=== PATIENT | female | born 1965 | race Caucasian/White ===

== ENCOUNTER 2017-12-12 12:12 | Emergency (ER) | payer OTHER ==
[~2017-12-12] VITALS: Ht 157.5 cm; Wt 46.7 kg
[~2017-12-12 12:12] MED LIST: ALBUTEROL0.09 MG/A1 INH; HYDROXYZINE HCL50 M1 PO; MEDROL 2 MG TABL2 MG PO; PREDNISONE10 M2 PO; TESSALON PERLE100 MG PO; ZITHROMAX Z-PA250 M1 PO
--- NOTE | 2017-12-12 13:08 | RADIOLOGY REPORT ---
EXAMINATION: XR CHEST CLINICAL INFORMATION: Shortness of breath and pulmonary congestion; question pneumonia. COMPARISON: Prior chest radiographs dated 11/24/2015. TECHNIQUE: Frontal and lateral views of the chest were obtained. FINDINGS: The heart, great vessels, pulmonary vasculature and mediastinum are normal. There is a full inspiratory effort. The lungs show no focal infiltrate, effusion or pneumothorax. There is no acute osseous abnormality. There are old, healed right third and ninth rib fractures. There has been a left shoulder arthroplasty. IMPRESSION: No active cardiopulmonary disease.
--- NOTE | 2017-12-12 14:54 | ED INFLUENZA/URI COMPLAINT ---
History of Present Illness General Chief Complaint: Upper Respiratory Sx/Fever Stated Complaint: CHEST CONGESTION, ?FLU, FEVER Source: patient Exam Limitations: no limitations Vital Signs & Intake/Output Vital Signs & Intake/Output Vital Signs Date Time Temp Pulse Resp B/P B/P Pulse O2 O2 Flow FiO2 Mean Ox Delivery Rate 12/12 1606 95 16 129/67 96 Room Air 12/12 1500 98 12/12 1231 99.9 98 18 139/87 99 Room Air Room Air Allergies Coded Allergies: No Known Allergies (11/24/15) Reconcile Medications Albuterol Sulfate (Proair Hfa) 90 MCG HFA.AER.AD 2 PUF INH Q4-6 PRN PRN COUGH/ WHEEZING Doxycycline Hyclate 100 MG TABLET 1 TAB PO BID BRONCHITIS Ibuprofen 800 MG TABLET 1 TAB PO TID PRN PAIN Prednisone (Deltasone) 20 MG TABLET 2 TAB PO ONCE DAILY PRN BRONCHITIS Triage Note: PT TO ED WITH C/O COUGH AND CONGESTION SINCE LAST NIGHT AND FEVERS AT HOME. TEMP IN TRIAGE 99.9, MED WITH MOTRIN 600MG PO FOR FEVER IN TRIAGE. Triage Nurses Notes Reviewed? yes Onset: Abrupt Duration: day(s): (1-2), constant, continues in ED Timing: single episode today Severity: moderate, severe Prior Episodes/Possible Cause: no prior episodes No Modifying Factors: none Associated Symptoms: cough, fever/chills, muscle aches, nasal congestion, nasal drainage, shortness of breath, wheezing LMP (ages 10-50): unknown : No Patient currently breastfeeds: No HPI: 52 year old female with no past medical history presents for evaluation of cough , congestion, wheezing, chest tightness and fever for the past 1-2 days. She reports cough is productive of yellow sputum that is worse at night causing difficult sleeping. She reports associated body aches and fever. She is not taking any medicine for this. She is a current every day smoker. No history of COPD or asthma. No dizziness or lightheadedness no chest pain hemoptysis or lower extremity edema. No recent surgery recent trauma. No malignancy. Past History Travel History Traveled to [place] past 21 day No Medical History Any Pertinent Medical History? see below for history Neurological: NONE EENT: NONE Cardiovascular: NONE Respiratory: NONE Gastrointestinal: NONE Hepatic: NONE Renal: NONE Musculoskeletal: NONE Psychiatric: NONE Endocrine: NONE Blood Disorders: NONE Cancer(s): NONE FLORAL DECORATOR/Reproductive: NONE Surgical History Surgical History: non-contributory Psychosocial History What is your primary language [place] Tobacco Use: Current Daily Use Daily Tobacco Use Amount/Type: => 5 Cigarettes daily ETOH Use: occasional use Illicit Drug Use: denies illicit drug use Family History Hx Contributory? No Review of Systems Review of Systems Constitutional: Reports: fever, malaise, weakness. EENTM: Reports: nasal congestion. Respiratory: Reports: see HPI, cough, short of breath, sputum production, wheezing. Cardiovascular: Reports: no symptoms. GI: Reports: no symptoms. Genitourinary: Reports: no symptoms. Musculoskeletal: Reports: no symptoms. Skin: Reports: no symptoms. Neurological/Psychological: Reports: no symptoms. Hematologic/Endocrine: Reports: no symptoms. Immunologic/Allergic: Reports: no symptoms. All Other Systems: Reviewed and Negative Physical Exam Physical Exam General Appearance: well developed/nourished, no apparent distress, alert, awake Head: atraumatic, normal appearance Eyes: Bilateral: normal appearance, PERRL, EOMI. Ears, Nose, Throat: moist mucous membrane, hearing grossly normal, Tympanic normal, pharynx normal, nasal congestion, nasal drainage (CLEAR) Neck: normal inspection, supple, full range of motion Respiratory: chest non-tender, no respiratory distress, rhonchi, wheezing Cardiovascular: regular rate/rhythm, normal peripheral pulses Peripheral Pulses: 2+ radial (R), 2+ radial (L) Gastrointestinal: soft, non-tender Back: normal inspection, normal range of motion, no vertebral tenderness Extremities: normal inspection, normal range of motion, no edema Neurologic/Psych: no motor/sensory deficits, awake, alert, oriented x 3, normal gait, normal mood/affect Skin: intact, normal color, warm/dry Core Measures Sepsis Present: No Sepsis Focused Exam Completed? No Progress Differential Diagnosis: influenza, otitis, pneumonia, pharyngitis, sinusitis, BRONCHITIS, copd, chf Plan of Care: Orders Procedure Date/time Status RAPID VIRAL INFLUENZA A 12/12 1515 Complete Microbiology 12/12 1527 NASOPHARYN: Influenza Virus A & B Rapid Smear - COMP Patient seen and evaluated. She currently has a low-grade temp of 99 9. She has wheezing and rhonchi ausculted bilaterally. No signs of hypoxia chest x-ray is clear. Patient is medicated with prednisone Tylenol and DuoNeb. She is feeling better after this. Negative flu lungs are clear. Patient be treated for acute bronchitis with prednisone and doxycycline pro-air. Alternate Tylenol and ibuprofen. Quit smoking. Discussed return precautions in detail. Follow- up with primary care doctor this week. Monitor symptoms return with any concerns. Diagnostic Imaging: Viewed by Me: Radiology Read. Discussed w/RAD: Radiology Read. CXR Impression: PATIENT: KELLY VARGAS PRESENT AGE: 52 PATIENT ACCOUNT NO: [id number] : 63 LOCATION: [facility] ORDERING PHYSICIAN: Juan C Maki DO (TBS) SERVICE DATE: 12/12/17 EXAM TYPE: RAD - XRY- CHEST XRAY, TWO VIEWS EXAMINATION: XR CHEST CLINICAL INFORMATION: Shortness of breath and pulmonary congestion; question pneumonia. COMPARISON: Prior chest radiographs dated 11/24/2015. TECHNIQUE: Frontal and lateral views of the chest were obtained. FINDINGS: The heart, great vessels, pulmonary vasculature and mediastinum are normal. There is a full inspiratory effort. The lungs show no focal infiltrate, effusion or pneumothorax. There is no acute osseous abnormality. There are old, healed right third and ninth rib fractures. There has been a left shoulder arthroplasty. IMPRESSION: No active cardiopulmonary disease. DICTATED BY: Rickey Khan MD DATE/TIME DICTATED:12/12/171302 TELECOMMUNICATIONS SWITCH TECHNICIAN:JULIA DATE/TIME TRANSCRIBED:12/12/171302 CONFIDENTIAL, DO NOT COPY WITHOUT APPROPRIATE AUTHORIZATION. Initial ED EKG: none Departure Departure Disposition: HOME OR SELF CARE Condition: Stable Clinical Impression Primary Impression: Acute bronchitis Qualifiers: Bronchitis organism: unspecified organism Qualified Code: J20.9 - Acute bronchitis, unspecified Referrals: Spenser MARY,Tomi Cortez (PCP/Family) Additional Instructions: Rest and drink plenty of fluids. Take antibiotics and steroids as directed for the full course. Tylenol or ibuprofen as needed for pain or fever. Pro-air inhaler 2 puffs every 4-6 hours as needed. Make a follow-up with your primary care doctor for this week. Quit smoking. Departure Forms: Customer Survey General Discharge Information Prescriptions: Current Visit Scripts Ibuprofen 1 TAB PO TID PRN PAIN #30 TAB Prednisone (Deltasone) 2 TAB PO ONCE DAILY PRN BRONCHITIS #10 TAB Albuterol Sulfate (Proair Hfa) 2 PUF INH Q4-6 PRN PRN COUGH/WHEEZING #1 INHAL Doxycycline Hyclate 1 TAB PO BID #14 TAB
[2017-12-12] MEDS ORDERED: DOXYCYCLINE HY100 M4 PO (16:01)
[2017-12-12] MEDS ORDERED: DELTASONE20 MG PO (16:01)
[2017-12-12] MEDS ORDERED: PROAIR HFA8.5 GM INH (16:01)
[2017-12-12] MEDS ORDERED: IBUPROFEN800 M1 PO (16:01)
[2017-12-12 16:06] VITALS: BP 129/67
== END 2017-12-12 16:15 ==
LOC: ERH 12:12
DX: J20.9 Acute bronchitis, unspecified (principal); R07.89 Other chest pain; F17.210 Nicotine dependence, cigarettes, uncomplicated
CPT/HCPCS: 1263; 71046; 87804; 87804-59

== ENCOUNTER 2018-01-05 11:59 | Emergency (ER) | payer OTHER ==
[~2018-01-05] VITALS: Ht 157.5 cm; Wt 47.6 kg
[~2018-01-05 11:59] MED LIST changes: +DELTASONE20 MG PO; +DOXYCYCLINE HY100 M4 PO; +IBUPROFEN800 M1 PO; +PROAIR HFA8.5 GM INH
--- NOTE | 2018-01-05 12:32 | ED CARDIAC/CP/PALPITATIONS ---
History of Present Illness General Chief Complaint: General Adult Stated Complaint: PT HAS PAIN ON THE LEFT SIDE Source: patient, old records Exam Limitations: no limitations Vital Signs & Intake/Output Vital Signs & Intake/Output Vital Signs Date Time Temp Pulse Resp B/P B/P Pulse O2 O2 Flow FiO2 Mean Ox Delivery Rate 01/05 1651 97.9 78 18 134/78 97 Room Air Room Air 01/05 1529 98.4 74 18 145/80 97 Room Air 01/05 1211 97.0 112 20 120/75 96 Room Air Allergies Coded Allergies: No Known Allergies (11/24/15) Reconcile Medications Albuterol Sulfate (Proair Hfa) 90 MCG HFA.AER.AD 2 PUF INH Q4-6 PRN PRN COUGH/ WHEEZING Doxycycline Hyclate 100 MG TABLET 1 TAB PO BID BRONCHITIS Hydrocodone/Acetaminophen ([place] 5-325 Tablet) 5 MG-325 MG TABLET 1 TAB PO BIDP PRN pain Ibuprofen 800 MG TABLET 1 TAB PO TID PRN PAIN Prednisone (Deltasone) 20 MG TABLET 2 TAB PO ONCE DAILY PRN BRONCHITIS Triage Note: PT TO ED C/O LEFT SIDED PAIN, UNDER BREAST, RADIATING TO BACK X 3 DAYS. DENIES INJURY/FALL. TOOK NAPROSYN WITH NO RELIEF. DENIES SOB OR DIFF BREATHING. DENIES S/S. Triage Nurses Notes Reviewed? yes Onset: Abrupt Duration: day(s): (3), constant Timing: recent history Quality/Severity: moderate, aching, sharp Location: LEFT CHEST Radiation: back Activities at Onset: none Prior Chest Pain/Card Workup: no prior chest pain Modifying Factors: Worsens With: breathing, palpation. Associated Symptoms: DENIES HPI: 52-year-old female active smoker presents to the ER for evaluation bleed with 3 day history of left-sided chest wall pain radiating around into her back. The pain is worse with inspiration. She does report associated shortness of breath. She has not taken anything for her symptoms. Patient recently seen here approximately a month ago for bronchitis however she states the symptoms got better. She states she had one episode of coughing 2 days ago when she states she coughed up brown phlegm. She has not coughed since. No abdominal pain nausea vomiting. She denies any rashes to her skin. No fevers no chills no recent immobility no leg pain or swelling (Ghassan Shelton) Past History Travel History Traveled to [place] past 21 day No Medical History Any Pertinent Medical History? none Neurological: NONE EENT: NONE Cardiovascular: NONE Respiratory: NONE Gastrointestinal: NONE Hepatic: NONE Renal: NONE Musculoskeletal: NONE Psychiatric: NONE Endocrine: NONE Blood Disorders: NONE Cancer(s): NONE INSTRUCTOR GROUND SERVICES/Reproductive: NONE Surgical History Surgical History: L SHOULDER REPLACEMENT Psychosocial History What is your primary language Urdu Tobacco Use: Current Daily Use Daily Tobacco Use Amount/Type: => 5 Cigarettes daily ETOH Use: denies use Illicit Drug Use: denies illicit drug use Family History Hx Contributory? No (Ghassan Shelton) Review of Systems Review of Systems Constitutional: Reports: see HPI. Comments Review of systems: See HPI, All other systems negative. Constitutional, no chills no fever, HEENT: no sore throat no congestion, no ear pain Cardiovascular: chest pain , no palpitation Skin: no rashes, no change in skin Respiratory: dyspnea no cough no sputum GI: No nausea no vomiting, no diarrhea : No dysuria Muscle skeletal: No joint pain, no back pain, no neck pain, Neurologic: , no headache Heme/endocrine: No bruising (Ghassan Shelton) Physical Exam Physical Exam General Appearance: no apparent distress, alert, awake Cardiovascular: tachycardia Comments: Well-developed well-nourished person in no acute distress HEENT: Normal EENT exam; PERRL, EOMI. HEAD is atraumatic. moist mucous membranes. Neck: Supple, normal range of motion Back: Nontender, Full range of motion Cardiovascular: Regular rate and rhythms no murmur Respiratory: Chest tender to palpation over the left anterior chest wall, no rashes There were no bony deformities, no asymmetry. No respiratory distress. Patient speaking in full complete sentences. Breath sounds clear to auscultation bilaterally: NO W/R/R Abdomen: Soft, nontender nondistended, no appreciable organomegaly. Normal bowel sounds. No rebound/guarding Extremity: No edema, full range of motion of extremities, normal and equal pulses bilaterally, pain in chest is not reproducible with movement of the left arm Neuro: Alert oriented x3, motor sensory normal,. There were no obvious focal neurologic abnormalities. Skin: No appreciable rash on exposed skin, skin is warm and dry. Psych: Mood and affect is normal, memory and judgment is normal. Core Measures ACS in differential dx? Yes CVA/TIA Diagnosis No Sepsis Present: No Sepsis Focused Exam Completed? No (Marco A DOUGLAS,Ghassan) Progress Differential Diagnosis: AMI, aortic dissection, atrial fibrillation, myocarditis , pancreatitis, pericarditis, pneumonia, pneumothorax, pulmonary embolism, PUD/ GERD, unstable angina, SHINGLES Plan of Care: Orders Procedure Date/time Status TROPONIN LEVEL 01/05 1600 Complete EKG 01/05 1600 Active EKG 01/05 1322 Active Telemetry/Sales Specialist 01/05 1243 Active TROPONIN LEVEL 01/05 1243 Complete PARTIAL THROMBOPLASTIN TIME 01/05 1243 Complete PROTHROMBIN TIME 01/05 1243 Complete LIPASE 01/05 1243 Complete ETHANOL 01/05 1243 Complete COMPREHENSIVE METABOLIC PANEL 01/05 1243 Complete CBC WITHOUT DIFFERENTIAL 01/05 1243 Complete Laboratory Tests 01/05/18 1558: Troponin I < 0.01 01/05/18 1255: Anion Gap 17 H, Estimated GFR > 60, BUN/Creatinine Ratio 20.0, Glucose 130 H, Calcium 9.1, Total Bilirubin 0.5, AST 55 H, ALT 83 H, Alkaline Phosphatase 165 H, Troponin I < 0.01, Total Protein 7.3, Albumin 4.3, Globulin 3.0, Albumin/ Globulin Ratio 1.4, Lipase 78, PT 9.3 L, INR 0.85 L, APTT 27, CBC w Diff NO MAN DIFF REQ, RBC 3.78 L, MCV 96.9, MCH 33.9 H, MCHC 35.0, RDW 14.4, MPV 7.1 L, Gran % 71.7, Lymphocytes % 21.6, Monocytes % 4.9, Eosinophils % 1.3, Basophils % 0.5, Absolute Granulocytes 7.3 H, Absolute Lymphocytes 2.2, Absolute Monocytes 0.5, Absolute Eosinophils 0.1, Absolute Basophils 0, Serum Alcohol 134.0 Labs ordered old records reviewed CAT scan ordered patient medicated with Vicodin [address] Conrad agrees with plan Patient reports resolution of symptoms with Vicodin I discussed with her all of her labs a day pending CAT scan 1545 discussed with the patient her CAT scan results denies any symptoms at this time pending repeat troponin. Patient has remained asymptomatic after being medicated with Vicodin. I discussed with her her repeat labs she feels well she feels comfortable with discharge advise close follow-up with her primary care physician information was provided for cardiology follow-up as well return precautions were discussed directly I discussed need for cessation from alcohol use. We'll send her home with a short prescription of [place] I advised no drinking or driving while taking this medication. She has a friend coming to pick her up today cleared for discharge Diagnostic Imaging: Viewed by Me: CT Scan. Discussed w/RAD: CT Scan. Radiology Impression: PATIENT: KELLY VARGAS PRESENT AGE: 52 PATIENT ACCOUNT NO: [id number] : 63 LOCATION: [facility] ORDERING PHYSICIAN: Ghassan DOUGLAS SERVICE DATE: 01/05/18 EXAM TYPE: CAT - CTA CHEST-PULMONARY EMBOLISM EXAMINATION: CT ANGIOGRAM OF THE CHEST WITH AND WITHOUT CONTRAST (CT PULMONARY ANGIOGRAM FOR PE) CLINICAL INFORMATION: Left-sided chest pain, dyspnea. Assess for PE. COMPARISON: Chest x-ray from 12/12/2017. TECHNIQUE : Prior to contrast administration, noncontrast localization images were obtained. Subsequently, multidetector volumetric imaging was performed from the thoracic inlet to below the diaphragms following the administration of 95 mL Optiray 320 intravenous contrast. No contrast reaction reported. Sagittal, coronal, and MIP oblique sagittal reformatted images were obtained on the CT workstation, uploaded to PACS, and reviewed. Total exam dose-length product 140 mGy-cm. FINDINGS: QUALITY OF STUDY/CONTRAST BOLUS: Satisfactory PULMONARY ARTERIES: No central or segmental pulmonary emboli. THORACIC AORTA: No aneurysm or dissection. LUNG: There are centrilobular emphysematous changes throughout the lungs. PLEURA: No pleural effusion or pneumothorax. MEDIASTINUM: Normal heart size. No pericardial effusion. No hilar or mediastinal lymphadenopathy. No evidence of septal bowing or right heart strain. CHEST WALL/AXILLA: No axillary or internal mammary lymphadenopathy. OSSEOUS STRUCTURES: No acute or suspicious osseous abnormality. Mild thoracic spondylosis. There is a left shoulder replacement prosthesis. UPPER ABDOMEN: Unremarkable. IMPRESSION: No evidence of central or segmental pulmonary embolism. Mild emphysematous change within the lungs bilaterally. VTE: negative DICTATED BY: Darlene Correa MD DATE/TIME DICTATED:01/05/181515 RECRUITER SPECIALIST:JULIA DATE/TIME TRANSCRIBED:1515 CONFIDENTIAL, DO NOT COPY WITHOUT APPROPRIATE AUTHORIZATION. < Electronically signed in Other Vendor System> SIGNED BY: Darlene Correa MD 01/05/18 1527 Initial ED EKG: normal intervals, normal p-waves, normal QRS complex, normal sinus rhythm (70) Prior EKG: unchanged Repeat EKG: unchanged Rhythm Strip: normal sinus rhythm (Ghassan Shelton) Departure Departure Time of Disposition: 1642 Disposition: HOME OR SELF CARE Condition: Stable Clinical Impression Primary Impression: Atypical chest pain Referrals: Velasquez Barlow MD, MD,Tomi Cortez (PCP/Family) Additional Instructions: Follow-up with your primary care physician as well as belt sewer Dr. Barlow next week. Rest, [place] for breakthrough pain this is a narcotic highly addictive. No driving or drinking alcohol while taking. Return anytime sooner if her symptoms worsen or you have any other concerns. Departure Forms: Customer Survey General Discharge Information Prescriptions: Current Visit Scripts Hydrocodone/Acetaminophen ([place] 5-325 Tablet) 1 TAB PO BIDP PRN pain #6 TAB (Ghassan Shelton) PA/FOOD STAND MANAGER Co-Sign Statement Statement: ED Attending supervision documentation- [] I saw and evaluated the patient. I have also reviewed all the pertinent lab results and diagnostic results. I agree with the findings and the plan of care as documented in the PA's/FOOD STAND MANAGER's documentation. [X] I have reviewed the ED Record and agree with the PA's/FOOD STAND MANAGER's documentation. [] Additions or exceptions (if any) to the PAs/FOOD STAND MANAGER's note and plan are summarized below: [] (Anamaria MARY,Esau Crawford) Critical Care Note Critical Care Note Critical Care Time: non-applicable (Ghassan Shelton)
[2018-01-05 13:08] LABS: ABSOLUTE BASOPHIL COUNT 0 /CUMM (0.0-0.2); ABSOLUTE EOSINOPHIL COUNT 0.1 /CUMM (0.0-0.7); ABSOLUTE GRANULOCYTE CT 7.3 /CUMM (1.4-6.5); ABSOLUTE LYMPH COUNT 2.2 /CUMM (1.2-3.4); ABSOLUTE MONOCYTE COUNT 0.5 /CUMM (0.10-0.60); BASOPHIL % 0.5 % (0.0-2.0); EOSINOPHIL % 1.3 % (0-5); GRANULOCYTE % 71.7 % (42.2-75.2); HEMATOCRIT 36.7 % (37-47); MEAN CORPUSCULAR HGB 33.9 PG (27.0-31.0); MEAN CORPUSCULAR VOLUME 96.9 FL (81.0-99.0); MEAN PLATELET VOLUME 7.1 FL (7.4-10.4); PLATELET COUNT 274 /CUMM (130-400); RBC DISTRIBUTION WIDTH 14.4 % (11.5-14.5); RED BLOOD CELL CT 3.78 /CUMM (4.20-5.40); WHITE BLOOD CELL COUNT 10.1 /CUMM (4.8-10.8)
[2018-01-05 13:32] LABS: PT 9.3 SEC (9.4-12.5); PTT 27 SEC (25-37)
--- NOTE | 2018-01-05 15:27 | CT SCAN REPORT ---
EXAMINATION: CT ANGIOGRAM OF THE CHEST WITH AND WITHOUT CONTRAST (CT PULMONARY ANGIOGRAM FOR PE) CLINICAL INFORMATION: Left-sided chest pain, dyspnea. Assess for PE. COMPARISON: Chest x-ray from 12/12/2017. TECHNIQUE: Prior to contrast administration, noncontrast localization images were obtained. Subsequently, multidetector volumetric imaging was performed from the thoracic inlet to below the diaphragms following the administration of 95 mL Optiray 320 intravenous contrast. No contrast reaction reported. Sagittal, coronal, and MIP oblique sagittal reformatted images were obtained on the CT workstation, uploaded to PACS, and reviewed. Total exam dose-length product 140 mGy-cm. FINDINGS: QUALITY OF STUDY/CONTRAST BOLUS: Satisfactory PULMONARY ARTERIES: No central or segmental pulmonary emboli. THORACIC AORTA: No aneurysm or dissection. LUNG: There are centrilobular emphysematous changes throughout the lungs. PLEURA: No pleural effusion or pneumothorax. MEDIASTINUM: Normal heart size. No pericardial effusion. No hilar or mediastinal lymphadenopathy. No evidence of septal bowing or right heart strain. CHEST WALL/AXILLA: No axillary or internal mammary lymphadenopathy. OSSEOUS STRUCTURES: No acute or suspicious osseous abnormality. Mild thoracic spondylosis. There is a left shoulder replacement prosthesis. UPPER ABDOMEN: Unremarkable. IMPRESSION: No evidence of central or segmental pulmonary embolism. Mild emphysematous change within the lungs bilaterally. VTE: negative
[2018-01-05] MEDS ORDERED: NORCO 5-325 TA1 EACH PO (16:43)
[2018-01-05 16:51] VITALS: BP 134/78
== END 2018-01-05 16:54 ==
LOC: ERH 11:59
PROVIDERS: Physician Assistant Medical
DX: R07.89 Other chest pain (principal)
CPT/HCPCS: 93005; 93010; G0480